=== PATIENT | male | born 1965 | race Caucasian/White ===

== ENCOUNTER → 2020-05-19 | Day surgery (SDC) | payer OTHER ==
[~2020-05-19] MED LIST: ALLOPURINOL 10100 MG PO; AMOXICILLIN500 MG PO; ONDANSETRON ODT8 MG PO; PANTOPRAZOLE SO40 MG PO; PERCOCET 10-321 EACH PO; VITAMIN B-121000 MC1 PO
[2020-05-19 08:32] LABS: HGB 16.2 g/dl (13.2-18.0); MCH 31.4 pg (25.0-31.0); MCHC 34.5 g/dL (32.0-36.0); MCV 91.1 fL (78.0-100.0); MPV 9.4 fL (6.0-9.5); RBC 5.16 M/uL (4.70-6.00); WBC 6.3 K/uL (4.0-10.5)
[2020-05-19 09:37] LABS: ALBUMIN 3.7 g/dL (3.4-5.0); BILIRUBIN - TOTAL 0.5 mg/dL (0.2-1.0); BUN/CREAT RATIO (CALC) 20.2 RATIO; CREATININE 0.84 mg/dL (0.67-1.17); GLOBULIN (CALCULATION) 3.5 g/dL; POTASSIUM 4.1 mmol/L (3.5-5.1); TOTAL PROTEIN 7.2 g/dL (6.4-8.2)
== END | disposition home or self-care (01) ==
LOC: FAS 07:55
PROVIDERS: Surgery
DX: K80.10 Calculus of gallbladder with chronic cholecystitis without obstruction (principal); K82.8 Other specified diseases of gallbladder; K76.0 Fatty (change of) liver, not elsewhere classified; K75.9 Inflammatory liver disease, unspecified; K21.9 Gastro-esophageal reflux disease without esophagitis; M10.9 Gout, unspecified; F17.290 Nicotine dependence, other tobacco product, uncomplicated; Z88.5 Allergy status to narcotic agent; Z79.899 Other long term (current) drug therapy
CPT/HCPCS: 36415; 80053; 87070; 87075; 87076; 87077; 87186; 87205; C1758; J0690; J1100; J1170; J1885; J2250; J2405; J2704; J2710; J3010; J7120; Q9967